=== PATIENT | male | born 1960 ===

== ENCOUNTER 2023-12-05 06:00 | Day surgery (SDC) | payer OTHER ==
[2023-11-06 11:59] LABS: HEMATOCRIT 44.6 % (39.0-48.0); HEMOGLOBIN 15.4 g/dL (13-16.00); MEAN CELL VOLUME 90.6 fL (80.0-100.00); MEAN CORPUSCULAR HEMOGLOBIN 31.2 pg (27.00-32.0); MEAN CORPUSCULAR HGB CONC 34.5 g/dl (32.0-36.0); PLATELET COUNT 186 K/uL (150-450); RED BLOOD COUNT 4.93 M/uL (4.00-6.00); RED CELL DISTRIBUTION WIDTH 13.6 % (11.5-14.5)
[2023-11-06 12:13] LABS: PH,URINE 6.5 (5.0-8.0); URINE APPEARANCE Clear; URINE BILIRRUBIN Negative (NEGATIVE); URINE BLOOD Trace; URINE COLOR Yellow; URINE GLUCOSE Negative (NEGATIVE); URINE LEUKOCYTE Trace; URINE NITRATE Negative; URINE PROTEIN 30 (NEGATIVE); URINE UROBILINOGEN 0.2 E.U./dl
[2023-11-06 12:16] LABS: URINE BACTERIA 62.9 uL (0.0-1933); URINE RBC 24.4 uL (0.0-20.8); URINE WBC 23.9 uL (0.0-23.2)
[2023-11-06 12:35] LABS: INR 0.98; PARTIAL THROMBOPLASTIN TIME 27.7 SECONDS (22.0-34.0); PROTHROMBIN TIME 10.3 SECONDS (9.0-11.5)
[2023-11-06 12:37] LABS: CALCIUM 9.4 mg/dL (8.5-10.1); CREATININE SERUM 0.97 mg/dL (0.70-1.30); GFR 77.67; POTASSIUM 3.82 mEq/L (3.5-5.1)
[~2023-12-05 06:00] MED LIST: COSENTYX P150 MG/11; METFORMIN HCL500 M1 PO; SYNTHROID88 MCG PO
== END 2023-12-05 15:05 | disposition home or self-care (01) ==
LOC: CIR.AMB 06:00
PROVIDERS: ATTEND Urology
DX: N20.0 Calculus of kidney (principal)